=== PATIENT | female | born 2000 | race Caucasian/White ===

== ENCOUNTER 2020-01-15 11:43 | Emergency (ER) | payer OTHER ==
[~2020-01-15] VITALS: Ht 154.9 cm; Wt 56.7 kg
[2020-01-15 12:38] VITALS: Ht 154.9 cm; Wt 56.7 kg
[2020-01-15 15:00] LABS: BASOPHIL % 0.4 % (0-2); PLATELET COUNT 274 x10^3mcL (130-400); RED CELL DISTRIBUTION WIDTH 13.2 % (11.5-14.5)
[2020-01-15 15:02] LABS: UA SPECIFIC GRAVITY <=1.005 (1.005-1.035); microscopic required? YES; urine erythrocyte 2+ (NEGATIVE)
[2020-01-15 17:30] VITALS: BP 111/73
== END 2020-01-15 17:30 | disposition home or self-care (01) ==
LOC: ED 11:43
PROVIDERS: Emergency Medicine
DX: O20.0 Threatened abortion (principal)